=== PATIENT | female | born 1955 | race African-American/Black ===

== ENCOUNTER 2018-05-22 08:26 | Inpatient (IN) | payer OTHER ==
[~2018-05-22] VITALS: Ht 170.2 cm; Wt 121.1 kg
[2018-05-22] VITALS (9 sets, daily range): BP systolic 112–153; BP diastolic 59–93
[2018-05-22] MEDS ORDERED: ONDANSETRON 4MG ODT PO ONE (09:15)
[2018-05-22] MEDS ORDERED: HYDROCODONE/ACETAMINOPHEN 5/325MG TABLET PO ONE (09:15)
[2018-05-22 09:53] LABS: BASOPHILS % 0.2 % (0.0-2.0); HEMATOCRIT. 38.6 % (36.0-48.0); HEMOGLOBIN. 12.3 g/dL (12.0-16.0); LYMPHOCYTES % 16.7 % (20.0-50.0); MEAN CORPUSCULAR HEMOGLOBIN 26.8 pg (28.0-32.0); MEAN CORPUSCULAR VOLUME 83.9 fL (81.0-99.0); MEAN PLATELET VOLUME 7.8 fl (7.4-10.4); MONOCYTES % 5.8 % (2.0-8.0); NEUTROPHILS % 76.3 % (40.0-76.0); PLATELET 207 x1000/uL (130-400); RED CELL DISTRIBUTION WIDTH 16.3 % (11.6-14.6)
[2018-05-22 10:00] LABS: CHLORIDE 105 mEq/L (98-107)
[2018-05-22 10:02] LABS: PARTIAL THROMBOPLASTIN TIME 24.5 sec (23.4-31.0); PROTHROMBIN TIME 10.9 sec (9.4-11.6)
[2018-05-22 10:08] LABS: CREATINE KINASE 98 IU/L (26-192)
[2018-05-22 10:11] LABS: CREATINE KINASE MB FRACTION 0.9 ng/mL (0.5-3.6)
[2018-05-22] MEDS ORDERED: SODIUM CHLORIDE 0.9% 1,000 ML IV ONE ×2 (10:24→11:23)
[2018-05-22] MEDS ORDERED: DILTIAZEM HCL 5MG/ML 5ML VIAL IV ONE (11:30)
[2018-05-22] MEDS ORDERED: DILTIAZEM HCL 30MG TABLET PO SCH (14:00)
[2018-05-22] MEDS ORDERED: MAGNESIUM HYDROXIDE 400MG/5ML 30ML UDC PO PRN (15:15)
[2018-05-22] MEDS ORDERED: DEXTROSE 50% WATER 50ML SYRINGE IV PRN (15:15)
[2018-05-22] MEDS ORDERED: ACETAMINOPHEN 325MG TABLET PO PRN (15:15)
[2018-05-22] MEDS ORDERED: ONDANSETRON HCL 4MG/2ML VIAL IV PRN (15:15)
[2018-05-22] MEDS ORDERED: CLONIDINE 0.1MG TABLET PO PRN (15:15)
[2018-05-22] MEDS ORDERED: TEMAZEPAM 15MG CAPSULE PO PRN (15:15)
[2018-05-22] MEDS ORDERED: MAGNESIUM/ALUMINUM HYDROXIDE/SIMETHICONE 30ML UDC PO PRN (15:15)
[2018-05-22] MEDS ORDERED: DIPHENHYDRAMINE 50MG/ML VIAL IV PRN (15:15)
[2018-05-22] MEDS: SODIUM CHLORIDE 0.45% 1,000 ML IV SCH (16:47)
[2018-05-22] MEDS: BLOOD SUGAR DIAGNOSTIC STRIP TEST SCH ×2 (17:27→21:02)
[2018-05-22] MEDS: METFORMIN HCL 500MG TABLET PO SCH (17:40)
[2018-05-22] MEDS: SULFASALAZINE 500MG TABLET PO SCH (17:40)
[2018-05-22] MEDS: INSULIN LISPRO 100 UNITS/ML SUBCUT SCH ×2 (17:41→21:00)
[2018-05-22] MEDS ORDERED: ATORVASTATIN CALCIUM 10MG TABLET PO SCH (21:00)
[2018-05-22] MEDS: FAMOTIDINE 20MG TABLET PO SCH (21:02)
[2018-05-22] MEDS: SODIUM CHLORIDE 0.9% INJ 3ML FLUSH IVF SCH (21:02)
[2018-05-22] MEDS: DILTIAZEM HCL 60MG TABLET PO SCH (22:30)
[2018-05-22] MEDS: IBUPROFEN 800MG TABLET PO PRN (23:26)
[2018-05-23] VITALS (11 sets, daily range): BP systolic 120–148; BP diastolic 57–86
[2018-05-23] MEDS: SODIUM CHLORIDE 0.45% 1,000 ML IV SCH (04:28)
[2018-05-23] MEDS: DILTIAZEM HCL 60MG TABLET PO SCH ×2 (05:56→14:07)
[2018-05-23] MEDS: SODIUM CHLORIDE 0.9% INJ 3ML FLUSH IVF SCH (05:56)
[2018-05-23 06:50] LABS: BASOPHILS % 0.2 % (0.0-2.0); EOSINOPHILS % 1.1 % (0.0-5.0); HEMATOCRIT. 36.7 % (36.0-48.0); HEMOGLOBIN. 11.8 g/dL (12.0-16.0); LYMPHOCYTES % 25.8 % (20.0-50.0); MEAN CORPUSCULAR HEMOGLOBIN 26.9 pg (28.0-32.0); MEAN CORPUSCULAR VOLUME 83.6 fL (81.0-99.0); MEAN PLATELET VOLUME 8.6 fl (7.4-10.4); MONOCYTES % 6.7 % (2.0-8.0); NEUTROPHILS % 66.2 % (40.0-76.0); PLATELET 201 x1000/uL (130-400); RED BLOOD CELL COUNT 4.38 mill/uL (4.2-5.4); RED CELL DISTRIBUTION WIDTH 16.2 % (11.6-14.6)
[2018-05-23] MEDS: INSULIN LISPRO 100 UNITS/ML SUBCUT SCH ×2 (08:00→12:35)
[2018-05-23 08:02] LABS: CHLORIDE 106 mEq/L (98-107)
[2018-05-23] MEDS: BLOOD SUGAR DIAGNOSTIC STRIP TEST SCH ×2 (08:28→12:35)
[2018-05-23] MEDS: METFORMIN HCL 500MG TABLET PO SCH (08:33)
[2018-05-23] MEDS: SULFASALAZINE 500MG TABLET PO SCH (08:33)
[2018-05-23] MEDS: FAMOTIDINE 20MG TABLET PO SCH (08:33)
[2018-05-23] MEDS: IBUPROFEN 800MG TABLET PO PRN (08:45)
[2018-05-23] MEDS ORDERED: EZETIMIBE 10MG TABLET PO SCH (09:00)
[2018-05-23] MEDS ORDERED: LORATADINE 10MG TABLET PO SCH (09:00)
[2018-05-23] MEDS ORDERED: FOLIC ACID 1MG TABLET PO SCH (09:00)
[2018-05-23] MEDS ORDERED: PREDNISONE 5MG TABLET PO SCH (09:00)
== END 2018-05-23 16:00 | disposition home or self-care (01) | DRG 351 ==
LOC: ER 08:26 → 5EST 11:01 → EDBEDREQ 11:08 → ENRESERV 11:25
PROVIDERS: ADMIT Internal Medicine; ATTEND Internal Medicine
DX: M25.511 Pain in right shoulder (principal); I11.9 Hypertensive heart disease without heart failure; E11.65 Type 2 diabetes mellitus with hyperglycemia; Z68.41 Body mass index [BMI] 40.0-44.9, adult; R00.0 Tachycardia, unspecified; M06.9 Rheumatoid arthritis, unspecified; M19.90 Unspecified osteoarthritis, unspecified site; E78.00 Pure hypercholesterolemia, unspecified; E66.09 Other obesity due to excess calories; Z96.652 Presence of left artificial knee joint; W18.39XA Other fall on same level, initial encounter; Y93.89 Activity, other specified; Y92.89 Other specified places as the place of occurrence of the external cause; Y99.8 Other external cause status; Z87.11 Personal history of peptic ulcer disease; E86.0 Dehydration
CPT/HCPCS: 36415; 71045; 73030; 80048; 80053; 82550; 82553; 82962; 83036; 83690; 83735; 83880; 84443; 84484; 85025; 85379; 85610; 85730; 93005; 93970; J1815; J3490; J7030; J7512; Q0162

== ENCOUNTER 2018-12-28 18:12 | Emergency (ER) | payer OTHER ==
[~2018-12-28] VITALS: Ht 160 cm; Wt 148.0 kg
[2018-12-28] MEDS ORDERED: IBUPROFEN 600MG TABLET PO ONE (22:45)
[2018-12-28 22:51] VITALS: BP 150/79
== END 2018-12-28 23:01 | disposition home or self-care (01) ==
LOC: ER 18:12
DX: B02.9 Zoster without complications (principal); R03.0 Elevated blood-pressure reading, without diagnosis of hypertension
CPT/HCPCS: 99281

== ENCOUNTER 2020-11-14 11:06 | Emergency (ER) | payer OTHER ==
[~2020-11-14] VITALS: Ht 160 cm; Wt 106.0 kg
[2020-11-14] MEDS ORDERED: HYDROCODONE/ACETAMINOPHEN 5/325MG TABLET PO ONE (11:30)
[2020-11-14 11:55] VITALS: BP 173/51
== END 2020-11-14 12:16 | disposition home or self-care (01) ==
LOC: ER 11:06
DX: G89.29 Other chronic pain (principal); M25.552 Pain in left hip; E11.9 Type 2 diabetes mellitus without complications
CPT/HCPCS: 99282